=== PATIENT | male | born 1985 | race Caucasian/White ===

== ENCOUNTER 2020-05-25 00:19 | Emergency (ER) | payer MEDICAID ==
[~2020-05-25] VITALS: Ht 177.8 cm; Wt 102.3 kg
[2020-05-25 00:25] VITALS: Ht 177.8 cm; Wt 102.3 kg
[2020-05-25] MEDS ORDERED: IBUPROFEN400 MG PO (00:26)
[2020-05-25] MEDS ORDERED: KLONOPIN1 MG PO ×2 (00:26→02:10)
[2020-05-25 01:03] LABS: BILIRUBIN NEGATIVE (NEGATIVE); GLUCOSE NEGATIVE (NEGATIVE); KETONE NEGATIVE (NEGATIVE); NITRITE NEGATIVE (NEGATIVE); UROBILINOGEN NORMAL (NORMAL)
[2020-05-25 01:05] LABS: EPITHELIAL CELLS 0-5 /hpf (0-5); RED CELLS - URINE 0-5 /hpf (0-5); WHITE CELLS - URINE 0-5 /hpf (NEGATIVE)
[2020-05-25 01:06] LABS: BACTERIA FEW /hpf (NEGATIVE)
[2020-05-25 01:14] LABS: BASOPHILS 0.1 % (0-2); CALC OSMOLALITY 278 mosm/kg (275-300); CALCIUM 9.7 mg/dL (8.5-10.1); CARBON DIOXIDE 23.8 mmol/L (21.0-32.0); CHLORIDE - SERUM 102 mmol/L (98-107); CREATININE - SERUM 1.4 mg/dL (0.6-1.3); EOSINOPHILS 0.1 % (0-7); GLUCOSE 134 mg/dL (74-106); HEMOGLOBIN 15.7 g/dL (13.5-17.5); IMMATURE GRANULOCYTES 0.3 % (0-5); LYMPHOCYTES 15.4 % (15-50); MCH 32.2 pg (26.0-34.0); MCHC 34.9 g/dL (31.0-37.0); MCV 92.2 fL (80.0-100.0); MEAN PLATELET VOLUME 11.3 fL (7.4-10.4); MONOCYTES 7.1 % (2-11); PLATELET COUNT 207 10x3/uL (130-400); POTASSIUM - SERUM 3.4 mmol/L (3.5-5.1); RBC 4.88 10x6/uL (4.20-6.10); RDW 12.7 % (11.5-14.5); SODIUM 138 mmol/L (136-145); UREA NITROGEN 16 mg/dL (7-18); WBC 11.9 10x3/uL (4.8-10.8); eGFR NON AFRICAN AMERICAN 62 mL/min (90-120)
[2020-05-25 01:18] LABS: UDS - AMPHET NEGATIVE QUAL (NEGATIVE); UDS - BARB NEGATIVE QUAL (NEGATIVE); UDS - BENZO NEGATIVE QUAL (NEGATIVE); UDS - COCAINE NEGATIVE QUAL (NEGATIVE); UDS - OPIATE NEGATIVE QUAL (NEGATIVE); UDS - PCP NEGATIVE QUAL (NEGATIVE); UDS - THC POSITIVE QUAL (NEGATIVE)
[2020-05-25 01:38] LABS: ALBUMIN 4.5 g/dL (3.4-5.0); ALKALINE PHOSPHATASE 77 U/L (30-120); ALT (SGPT) 23 U/L (10-68); BILIRUBIN - TOTAL 0.65 mg/dL (0.2-1.3); CREATINE KINASE 539 UL (21-232); LIPASE 189 U/L (73-393); PROTEIN - SERUM 8.1 g/dL (6.4-8.2)
[2020-05-25 01:41] LABS: CKMB 3.6 U/L (0.0-3.6)
[2020-05-25] MEDS ORDERED: ZOFRAN ODT4 MG/UDTAB PO (02:10)
[2020-05-25 02:47] VITALS: BP 141/82
== END 2020-05-25 03:05 | disposition home or self-care (01) ==
LOC: D.ER 00:19
PROVIDERS: Family Medicine
DX: R56.9 Unspecified convulsions (principal)